=== PATIENT | female | born 1965 | race African-American/Black ===

== ENCOUNTER 2018-11-02 05:55 | Emergency (ER) | payer BC ==
[~2018-11-02] VITALS: Ht 157.5 cm; Wt 140.6 kg
[2018-11-02] MEDS ORDERED: TRAZODONE HCL50 MG PO (06:18)
[2018-11-02] MEDS ORDERED: LEXAPRO20 MG PO (06:19)
[2018-11-02 07:03] LABS: URINE BILIRUBIN NEGATIVE (Negative); URINE BLOOD TRACE (Negative); URINE CLARITY CLEAR; URINE COLOR YELLOW; URINE GLUCOSE-RANDOM* NEGATIVE (Negative); URINE KETONES NEGATIVE (Negative); URINE LEUKOCYTES-REFLEX NEGATIVE (Negative); URINE NITRITE-REFLEX NEGATIVE (Negative); URINE PROTEIN (DIPSTICK) TRACE (Negative); URINE UROBILINOGEN 0.2 E.U./dl (0.2-1.0)
[2018-11-02 07:42] LABS: ABSOLUTE NEUTROPHILS 9.7 thou/uL (1.4-8.2); BASOPHILS 0.5 % (0.0-2.0); EOSINOPHILS 0.1 % (0.0-3.0); HEMATOCRIT 38.1 % (37.0-47.0); LYMPHOCYTES 10.6 % (24.0-44.0); MCH 26.3 pg (26.0-34.0); MCHC 31.6 g/dL (28.0-37.0); MCV 83.2 fL (80.0-100.0); MONOCYTES 4.5 % (1.0-8.0); PLATELET COUNT 236 thou/uL (150-400); POLYS 84.3 % (36.0-66.0); RBC 4.57 mil/uL (4.20-5.00); RDW 13.9 % (10.5-14.5); WBC 11.5 thou/uL (4.0-11.0)
[2018-11-02 07:49] LABS: CALCIUM 9.5 mg/dL (8.5-10.1); POTASSIUM 4.2 mmol/L (3.5-5.1)
[2018-11-02 07:55] LABS: ALBUMIN 3.5 g/dL (3.4-5.0); TOTAL BILIRUBIN 0.3 mg/dL (<0.1-1.0); TOTAL PROTEIN 8.2 g/dL (6.4-8.2)
[2018-11-02] MEDS ORDERED: NORCO 5-325 TA1 EACH PO (09:39)
[2018-11-02] MEDS ORDERED: SENNA-DOCUSATE1 EAC1 PO (09:39)
[2018-11-02 10:38] VITALS: BP 138/69
== END 2018-11-02 10:39 | disposition home or self-care (01) ==
LOC: ER 05:55
PROVIDERS: Emergency Medicine
DX: R10.12 Left upper quadrant pain (principal); R11.10 Vomiting, unspecified; Z91.048 Other nonmedicinal substance allergy status